=== PATIENT | male | born 1975 | race Caucasian/White ===

== ENCOUNTER 2024-10-21 15:28 | Emergency (ER) | payer OTHER, SELFPAY ==
[2024-10-21 15:39] VITALS: BP 149/89
[2024-10-21 16:15] LABS: % Basophils 0.5 % (0-2); % Eosinophils 2.5 % (0-6); % Immature Granulocytes 0.5 % (0-0.5); % Lymphocytes 25.4 % (20.5-51.1); % Monocytes 8.5 % (1.7-9.3); % Neutrophils 62.6 % (42.2-75.2); Absolute Eosinophils 0.2 10^3/uL (0-0.7); Absolute Lymphocytes 1.7 10^3/uL (1.2-3.4); Absolute Monocytes 0.6 10^3/uL (0.1-0.6); Absolute Neutrophils 4.1 10^3/uL (1.4-6.5); Hematocrit 43.1 % (39.0-52.0); Hemoglobin 15.3 g/dL (13.0-18.0); Mean Corp Hgb Conc. 35.5 g/dL (33.0-37.0); Mean Corpuscular Hgb 30.4 pg (27.0-31.0); Mean Corpuscular Volume 85.7 fL (80.0-94.0); Mean Platelet Volume 10.1 fL (7.4-10.4); Nucleated Red Blood Cells % 0 % (-); Platelet Count 171 10^3/uL (130-400); Red Blood Cell Count 5.03 10^6/uL (4.70-6.10); Red Cell Dist. Width 12.1 % (11.5-14.5); White Blood Cell Count 6.5 10^3/uL (4.8-10.8)
[2024-10-21 16:34] LABS: ALT (SGPT) 99 U/L (0-50); AST (SGOT) 88 U/L (17-59); Albumin 4.8 g/dl (3.5-5.0); Alkaline Phosphatase 43 U/L (38-126); Blood Urea Nitrogen 28 mg/dl (9-20); Calcium 9.4 mg/dl (8.4-10.2); Carbon Dioxide 24 mmol/L (22-30); Chloride 101 mmol/L (98-107); Glucose 103 mg/dl (70-99); Potassium 4.2 mmol/L (3.5-5.1); Sodium 135 mmol/L (135-145); Total Bilirubin 0.6 mg/dl (0.2-1.3); Total Protein 7.5 g/dl (6.3-8.2); eGFR > 60.00
[2024-10-21 16:38] LABS: Troponin I < 0.012 ng/ml
--- NOTE | 2024-10-21 19:53 | ED.GENMED ---
History of Present Illness
General
Chief Complaint: Breathing Problem
Time Seen by Provider: 10/21/24 19:08
History of Present Illness
History of Present Illness:
48-year-old male without significant past medical history presenting to the emergency department for shortness of breath. Patient reports shortness of breath and an uncomfortable feeling in his left upper chest. He reports symptoms for the past 6
days. He notes that his best friend just had a heart attack, so his symptoms were concerning for him urgent care prior to arrival and they told him that he may have an abnormal EKG and was prompted to come to the hospital. Denies any personal
cardiac history. Denies any family history of cardiac disease. Denies any history of blood clot, recent surgery or travel. Denies any present chest pain. Shortness of breath is not made worse with exertion. Denies fever or cough. Denies
additional medical complaints.
Phy Exam
Physical Exam
Physical Exam:
General: Well-appearing, no clinical signs of dehydration, nontoxic and in no acute distress
HEENT: protecting airway
Neck: appears supple
CV: Normal heart rate, regular rhythm. No tenderness to the chest wall
Resp: No accessory muscle use, no increased work of breathing, lungs clear to auscultation bilaterally
Abd: Soft and non-distended, no tenderness to palpation
Extremities: No deformities, no swelling, no erythema
Neuro: alert, no focal neurologic deficit
: deferred
Rectal: deferred
Psych: Normal affect
Skin: Intact
Scores
Heart Failure Risk
Heart Failure Risk Score: Not Applicable
Heart Score for Chest Pain Patients
STEMI patient?: No
History: Slightly or Non-Suspicious
ECG: Normal
Age: >45 - <65 years
Risk Factors: No Risk Factors
Troponin: </= Normal Limit
Heart Score for Chest Pain Patients: 1
Heart Score Risk: 2.5% MACE over next 6 weeks
Course
Orders/Labs/Results
Orders:
Orders
10/21/24 15:30
ECG [Electrocardiogram (*1)] Urgent
Reason for Study: Shortness of Breath
EKG- Treatment ONCE
10/21/24 15:31
CR Chest - 2 Views Urgent
Comment:
Reason For Exam: SOB
10/21/24 15:51
Complete Blood Count/With Diff Urgent
Comprehensive Metabolic Panel Urgent
Troponin I Urgent
10/21/24 20:04
D-Dimer Urgent
Abnormal Lab Results
10/21/24
15:51
BUN 28 H mg/dl
(9-20)
Glucose 103 H mg/dl
(70-99)
AST 88 H U/L
(17-59)
ALT 99 H U/L
(0-50)
10/21/24 15:51
10/21/24 15:51
Vital Signs
Initial and Last Documented VS:
Initial Vital Signs
Temp Pulse Resp BP Pulse Ox
98.9 F 98 18 149/89 99
10/21/24 15:39 10/21/24 15:39 10/21/24 15:39 10/21/24 15:39 10/21/24 15:39
Last Documented Vital Signs
Temp Pulse Resp BP Pulse Ox
98.9 F 73 18 147/88 99
10/21/24 15:39 10/21/24 20:46 10/21/24 20:46 10/21/24 20:46 10/21/24 20:46
MDM/Problems Addressed
MDM/Problems Addressed:
48-year-old male with no significant past medical history presenting to the emergency department for shortness of breath and discomfort to the left upper chest. Vital signs on arrival are normal.
On physical exam, patient is well-appearing, no acute distress, asymptomatic. EKG obtained at patient's arrival, no acute ischemic abnormality. No significant coronary risk factors with lower suspicion for ACS. Plan for laboratory analysis
including troponin. Given patient's focal dyspnea, also obtain chest x-ray imaging to ensure no spontaneous pneumothorax. Will also obtain to ensure no blood clot.
19:40 - Patient's troponin is undetectable, low risk by heart score, again without concern for ACS. Pending dimer and chest x-ray imaging.
20:30 - Patient's dimer is within normal limits, without concern for PE. Chest x-ray without acute cardiopulmonary disease. On reassessment patient remains febrile. At this time feel that he is stable for discharge with close interval follow-up
with his primary care doctor. Will provide cardiology follow-up if symptoms are persisting. Return precautions discussed and patient verbalized understanding
*EKG
Interpreted by ED Provider?: Yes
EKG Intrepretation Date: 10/21/24
EKG Intrepretation Time: 20:02
Interpretation: normal
Comparison EKG: no comparison EKG present
Heart Rate: 80
Rate: normal
Rhythm: sinus
[place]: normal axis
Interval: normal interval
QRS Pattern: normal QRS
Ischemia: no ischemia
*Critical Care Note
Total Time (30-74mins, 75-104mins- exclusive of procedures): Not Applicable
ED Attending Note
-
Portions of this chart may have been created with voice recognition software.� Occasional wrong word or��sound alike� substitutions may have occurred due to the inherent limitations of voice recognition software.
Discharge Plan
Departure
Patient Disposition: Home (Routine Discharge)
Date of Disposition: 10/21/24
Time of Disposition: 20:35
Patient with high blood pressure during this ER visit?: Yes
Condition: Good
Discharge Problem:
Breath shortness
Instructions: Shortness of Breath (Dyspnea) (DC)
Referrals:
Luis Elias MD [Active] -
Mario Alberto Poe DO [Family Provider] -
Activity Restrictions/Additional Instructions:
You were seen in the emergency department for shortness of breath
You were found to have normal EKG, lab work, chest x-ray imaging
Please follow-up closely with your primary care physician.
Return to the emergency department for any worsening of your symptoms, or any development of chest pain, difficulty breathing, abdominal pain with persistent vomiting and inability to tolerate food or liquid by mouth (concern for dehydration),
weakness, headache or confusion, fever greater than 100.4, or any additional symptoms that are concerning to you.
Thank you for choosing [facility].
Interventions
Interventions:
*Risk Screen - Suicide Last Done: 10/21/24 15:42
*General Assessment Last Done: 10/21/24 15:43
*Neglect/Abuse Screening Last Done: 10/21/24 15:42
*ED COVID-19 Vaccine History Last Done: 10/21/24 15:42
*Nursing Disposition Last Done: 10/21/24 20:46
ED- Cardiac Assessment Last Done: 10/21/24 19:06
ED- Pulmonary Assessment Last Done: 10/21/24 19:06
Discharge Date and Time
Discharge Date/Time: 10/21/24 20:47
Print Language: ALGERIAN
[2024-10-21 20:22] LABS: D-Dimer 0.36 ug/mlFEU (0.00-0.50)
[2024-10-21 20:46] VITALS: BP 147/88
== END 2024-10-21 20:47 | disposition home or self-care (01) ==
LOC: EMR 15:28
PROVIDERS: Emergency Medicine; EMERGENCY PHYSICIAN Student in an Organized Health Care Education/Training Program; FAMILY PHYSICIAN Family Medicine
DX: R06.02 Shortness of breath (principal); R07.89 Other chest pain; R03.0 Elevated blood-pressure reading, without diagnosis of hypertension
CPT/HCPCS: 99283; 71046; 80053; 84484; 85025; 85379; 93005